=== PATIENT | male | born 1955 | race Caucasian/White ===

== ENCOUNTER 2018-11-20 12:23 | Emergency (ER) | payer OTHER ==
[2018-11-20 12:45] VITALS: BP 114/71
--- NOTE | 2018-11-20 13:04 | UC ---
Abdominal Pain Male HPI - HPI Summary HPI Summary: 62-year-old male presents with complaints of several day history of progressively worsening lower abdominal pain. States he noted the pain started after he ate some nuts. Has had similar episodes in the past however never been this severe nor lasted this long. States pain waxes and wanes in intensity. Worsens with bending and movement. Associated with some mild bloating. States normally has one bowel movement today but over the past 3 days he has had 2-3 small, formed, brown stools. Personal history of IBS but is typically associated with diarrhea. Father has history of recurrent diverticulitis. Denies fever, chills, chest pain, shortness of breath, back or flank pain, nausea, vomiting, diarrhea, blood in stool, melena, dysuria, frequency, urgency, or hematuria. - History of Current Complaint Chief Complaint: UCAbdominalPain Stated Complaint: ABD PAIN Time Seen by Provider: 11/20/18 12:53 Hx Obtained From: Patient Pain Intensity: 6 - Allergies/Home Medications Allergies/Adverse Reactions: Allergies Allergy/AdvReac Type Severity Reaction Status Date / Time No Known Allergies Allergy Verified 11/20/18 12:46 Home Medications: Home Medications NK [No Home Medications Reported] 11/20/18 [History Confirmed 11/20/18] PMH/Surg Hx/FS Hx/Imm Hx Previously Healthy: Yes GI/ History: Other - IBS - Surgical History Surgical History: None - Family History Known Family History: Positive: Other - Diverticulitis - Social History Occupation: Retired Lives: With Family Alcohol Use: None Substance Use Type: None Smoking Status (MU): Never Smoked Tobacco Review of Systems All Other Systems Reviewed And Are Negative: Yes Constitutional: Negative: Fever, Chills Respiratory: Positive: Negative Cardiovascular: Positive: Negative Gastrointestinal: Positive: Abdominal Pain. Negative: Vomiting, Diarrhea, Nausea Genitourinary: Negative: Dysuria, Hematuria, Frequency, Urgency Musculoskeletal: Positive: Negative Neurological: Positive: Negative Is Patient Immunocompromised?: No Physical Exam - Summary Physical Exam Summary: GENERAL APPEARANCE: Well developed, well nourished, alert and cooperative, and appears to be in no acute distress. CARDIAC: Normal S1 and S2. No S3, S4 or murmurs. Rhythm is regular. There is no peripheral edema, cyanosis or pallor. Extremities are warm and well perfused. Capillary refill is less than 2 seconds. Peripheral pulses intact. LUNGS: Clear to auscultation without rales, rhonchi, wheezing or diminished breath sounds. ABDOMEN: Positive bowel sounds. Soft, nondistended. Significant right and left lower quadrant tenderness with guarding. No masses or hepatosplenomegally. No CVA tenderness. MUSKULOSKELETAL: ROM intact to all extremities. No joint erythema or tenderness. Normal muscular development. Normal gait. SKIN: Skin normal color, texture and turgor with no lesions or eruptions. Triage Information Reviewed: Yes Vital Signs: Initial Vital Signs Temp 98.9 F 11/20/18 12:42 Pulse 73 11/20/18 12:42 Resp 18 11/20/18 12:42 BP 114/71 11/20/18 12:42 Pulse Ox 99 11/20/18 12:42 Vital Signs Reviewed: Yes Abd Pain Male Course/Dx - Course Course Of Treatment: 62-year-old male presents with complaints of several day history of progressively worsening lower abdominal pain. States he noted the pain started after he ate some nuts. Has had similar episodes in the past however never been this severe nor lasted this long. States pain waxes and wanes in intensity. Worsens with bending and movement. Associated with some mild bloating. States normally has one bowel movement today but over the past 3 days he has had 2-3 small, formed, brown stools. Personal history of IBS but is typically associated with diarrhea. Father has history of recurrent diverticulitis. Denies fever, chills, chest pain, shortness of breath, back or flank pain, nausea, vomiting, diarrhea, blood in stool, melena, dysuria, frequency, urgency, or hematuria. Afebrile. Vital signs stable. Patient had a soft, nondistended abdomen with tenderness to the right and left lower quadrants with some guarding. Remainder of exam was unremarkable. Based on the patient's history and exam I am recommending that he have further evaluation in the emergency room at this time. Patient is agreeable to this and is electing to transport via private vehicle with his family member driving. - Differential Dx/Clinical Impression Differential Diagnosis/HQI/PQRI: Appendicitis, Constipation, Diverticulitis, Renal Colic, Urinary Tract Infection Provider Diagnosis: Acute bilateral lower abdominal pain Discharge - Sign-Out/Discharge Documenting (check all that apply): Patient Departure All imaging exams completed and their final reports reviewed: No Studies - Discharge Plan Condition: Stable Disposition: HOME-RECOMMEND TO ED Patient Education Materials: Acute Abdominal Pain (ED) Referrals: Leonel Kellogg MD [Primary Care Provider] - Additional Instructions: With your worsening abdominal pain and significant tenderness in the lower abdomen I am recommending that you go to the emergency room for further evaluation. Go directly to the emergency room from here. Do not eat or drink anything until you have been evaluated. - Billing Disposition and Condition Condition: STABLE Disposition: Home-Recommend to ED
== END 2018-11-20 13:11 | disposition home health service (06) ==
LOC: UCEAST 12:23
DX: R10.32 Left lower quadrant pain (principal); R10.31 Right lower quadrant pain; K58.9 Irritable bowel syndrome, unspecified
CPT/HCPCS: 99201; G0463

== ENCOUNTER 2018-11-20 13:32 | Emergency (ER) | payer OTHER ==
[2018-11-20 14:41] LABS: Urine Appearance Clear; Urine Bilirubin Negative (Negative); Urine Blood Negative (Negative); Urine Color Yellow; Urine Glucose Negative (Negative); Urine Ketones Negative (Negative); Urine Nitrite Negative (Negative); Urine Protein Negative (Negative); Urine Specific Gravity 1.023 (1.010-1.030); Urine Urobilinogen Negative (Negative)
[2018-11-20 15:25] LABS: ABS Eosinophils 0.1 10^3/ul (0-0.6); ABS Lymphocytes 1.5 10^3/ul (1.0-4.8); ABS Monocytes 0.9 10^3/ul (0-0.8); ABS Neutrophils 7.5 10^3/ul (1.5-7.7); Eosinophil % 1.2 %; Hematocrit 43 % (42-52); Lymphocyte % 14.7 %; Mean Corpuscular HGB Conc 35 g/dL (31-36); Mean Corpuscular Hemoglobin 33 pg (27-31); Mean Corpuscular Volume 94 fL (80-94); Mean Platelet Volume 8.9 fL (7.4-10.4); Platelet Count 162 10^3/uL (150-450); Red Blood Count 4.62 10^6 /uL (4.18-5.48); Red Cell Distribution Width 13 % (10-15); White Blood Count 10.1 10^3/uL (3.5-10.8)
[2018-11-20 15:48] LABS: Albumin 4.2 g/dL (3.2-5.2); Albumin/Globulin Ratio 1.2 (1-3); C Reactive Protein 86.77 mg/L (<8.01); Calcium 9.8 mg/dL (8.6-10.3); EGFR African American 111.3 (>60); Globulin 3.4 g/dL (2-4); Potassium 4.8 mmol/L (3.5-5.0); Total Bilirubin 0.4 mg/dL (0.2-1.0); Total Protein 7.6 g/dL (6.4-8.9)
[2018-11-20] MEDS ORDERED: Iohexol 300* (CONTRAST) 10 ML SDV IV ONE (16:18)
--- NOTE | 2018-11-20 16:42 | ED ---
Abdominal Pain/Male - HPI Summary HPI Summary: Patient is a 62-year-old male who presents emergency department for lower abdominal pain 4 days. Patient states pain is sharp and crampy in nature. Movement makes symptoms worse. Nothing makes symptoms better. Associated symptoms of increased flatus and decreased stool. Patient states he ate nuts several days ago and feels his symptoms are secondary to nuts. He does note history of irritable bowel syndrome but symptoms for different today. He otherwise denies past medical history. Patient states he's had a colonoscopy in the past which was normal. Patient otherwise denies fever, chills, chest pain, shortness of breath, vomiting, urinary symptoms. Sxs are moderate in severity. - History of Current Complaint Chief Complaint: EDAbdPain Stated Complaint: LOWER ABD PAIN PER PT Time Seen by Provider: 11/20/18 16:04 Hx Obtained From: Patient Pain Intensity: 7 - Allergies/Home Medications Allergies/Adverse Reactions: Allergies Allergy/AdvReac Type Severity Reaction Status Date / Time No Known Allergies Allergy Verified 11/20/18 12:46 PMH/Surg Hx/FS Hx/Imm Hx Previously Healthy: Yes Infectious Disease History: No Infectious Disease History: Denies: Traveled Outside the [place] in Last 30 Days - Family History Known Family History: Positive: Other - Diverticulitis, Non-Contributory - Social History Occupation: Retired Lives: With Family Alcohol Use: None Substance Use Type: Reports: None Smoking Status (MU): Never Smoked Tobacco Review of Systems Constitutional: Negative Negative: Fever, Chills Cardiovascular: Negative Respiratory: Negative Negative: Shortness Of Breath, Cough Positive: Abdominal Pain. Negative: Vomiting, Diarrhea, Nausea Neurological: Negative All Other Systems Reviewed And Are Negative: Yes Physical Exam Triage Information Reviewed: Yes Vital Signs On Initial Exam: Initial Vitals Temp Pulse Resp BP Pulse Ox 98.2 F 65 18 138/84 96 11/20/18 13:35 11/20/18 13:35 11/20/18 13:35 11/20/18 13:35 11/20/18 13:35 Vital Signs Reviewed: Yes Appearance: Positive: Well-Appearing - Pt. sitting up in bed in NAD. present. Skin: Positive: Warm, Dry Head/Face: Positive: Normal Head/Face Inspection Eyes: Positive: Normal, EOMI Neck: Positive: Supple Respiratory/Lung Sounds: Positive: Clear to Auscultation, Breath Sounds Present Cardiovascular: Positive: Normal, RRR Abdomen Description: Positive: Other: - Abd is soft with diffuse tenderness to right, left and suprapubic region of lower abd. with guarding. Musculoskeletal: Positive: Normal, Strength/ROM Intact Neurological: Positive: Normal, CN Intact II-III Psychiatric: Positive: Affect/Mood Appropriate Diagnostics - Vital Signs Vital Signs Temp Pulse Resp BP Pulse Ox 11/20/18 15:27 99.5 F 64 20 130/77 97 11/20/18 13:35 98.2 F 65 18 138/84 96 - Laboratory Lab Results: Lab Results 11/20/18 11/20/18 11/20/18 Range/Units 14:25 15:16 15:16 WBC 10.1 (3.5-10.8) 10^3/uL RBC 4.62 (4.18-5.48) 10^6 /uL Hgb 15.0 (14.0-18.0) g/dL Hct 43 (42-52) % MCV 94 (80-94) fL MCH 33 H (27-31) pg MCHC 35 (31-36) g/dL RDW 13 (10-15) % Plt Count 162 (150-450) 10^3/uL MPV 8.9 (7.4-10.4) fL Neut % (Auto) 74.5 % Lymph % (Auto) 14.7 % [place] % (Auto) 9.2 % Eos % (Auto) 1.2 % Baso % (Auto) 0.4 % Absolute Neuts (auto) 7.5 (1.5-7.7) 10^3/ul Absolute Lymphs (auto) 1.5 (1.0-4.8) 10^3/ul Absolute Monos (auto) 0.9 H (0-0.8) 10^3/ul Absolute Eos (auto) 0.1 (0-0.6) 10^3/ul Absolute Basos (auto) 0.0 (0-0.2) 10^3/ul Absolute Nucleated RBC 0.0 10^3/ul Nucleated RBC % 0.0 Sodium 138 (135-145) mmol/L Potassium 4.8 (3.5-5.0) mmol/L Chloride 105 (101-111) mmol/L Carbon Dioxide 27 (22-32) mmol/L Anion Gap 6 (2-11) mmol/L BUN 21 (6-24) mg/dL Creatinine 0.84 (0.67-1.17) mg/dL Est GFR ( Amer) 111.3 (>60) Est GFR (Non-Af Amer) 92.0 (>60) BUN/Creatinine Ratio 25.0 H (8-20) Glucose 102 H (70-100) mg/dL Lactic Acid (0.5-2.0) mmol/L Calcium 9.8 (8.6-10.3) mg/dL Total Bilirubin 0.40 (0.2-1.0) mg/dL AST 18 (13-39) U/L ALT 22 (7-52) U/L Alkaline Phosphatase 94 (34-104) U/L Troponin I 0.00 (<0.04) ng/mL C-Reactive Protein 86.77 H (<8.01) mg/L Total Protein 7.6 (6.4-8.9) g/dL Albumin 4.2 (3.2-5.2) g/dL Globulin 3.4 (2-4) g/dL Albumin/Globulin Ratio 1.2 (1-3) Lipase 18 (11.0-82.0) U/L Urine Color Yellow Urine Appearance Clear Urine pH 5.0 (5-9) Ur Specific [place] 1.023 (1.010-1.030) Urine Protein Negative (Negative) Urine Ketones Negative (Negative) Urine Blood Negative (Negative) Urine Nitrate Negative (Negative) Urine Bilirubin Negative (Negative) Urine Urobilinogen Negative (Negative) Ur Leukocyte Esterase Negative (Negative) Urine Glucose Negative (Negative) 11/20/18 Range/Units 15:16 WBC (3.5-10.8) 10^3/uL RBC (4.18-5.48) 10^6 /uL Hgb (14.0-18.0) g/dL Hct (42-52) % MCV (80-94) fL MCH (27-31) pg MCHC (31-36) g/dL RDW (10-15) % Plt Count (150-450) 10^3/uL MPV (7.4-10.4) fL Neut % (Auto) % Lymph % (Auto) % [place] % (Auto) % Eos % (Auto) % Baso % (Auto) % Absolute Neuts (auto) (1.5-7.7) 10^3/ul Absolute Lymphs (auto) (1.0-4.8) 10^3/ul Absolute Monos (auto) (0-0.8) 10^3/ul Absolute Eos (auto) (0-0.6) 10^3/ul Absolute Basos (auto) (0-0.2) 10^3/ul Absolute Nucleated RBC 10^3/ul Nucleated RBC % Sodium (135-145) mmol/L Potassium (3.5-5.0) mmol/L Chloride (101-111) mmol/L Carbon Dioxide (22-32) mmol/L Anion Gap (2-11) mmol/L BUN (6-24) mg/dL Creatinine (0.67-1.17) mg/dL Est GFR ( Amer) (>60) Est GFR (Non-Af Amer) (>60) BUN/Creatinine Ratio (8-20) Glucose (70-100) mg/dL Lactic Acid 0.5 (0.5-2.0) mmol/L Calcium (8.6-10.3) mg/dL Total Bilirubin (0.2-1.0) mg/dL AST (13-39) U/L ALT (7-52) U/L Alkaline Phosphatase (34-104) U/L Troponin I (<0.04) ng/mL C-Reactive Protein (<8.01) mg/L Total Protein (6.4-8.9) g/dL Albumin (3.2-5.2) g/dL Globulin (2-4) g/dL Albumin/Globulin Ratio (1-3) Lipase (11.0-82.0) U/L Urine Color Urine Appearance Urine pH (5-9) Ur Specific [place] (1.010-1.030) Urine Protein (Negative) Urine Ketones (Negative) Urine Blood (Negative) Urine Nitrate (Negative) Urine Bilirubin (Negative) Urine Urobilinogen (Negative) Ur Leukocyte Esterase (Negative) Urine Glucose (Negative) Result Diagrams: 11/20/18 15:16 11/20/18 15:16 Lab Statement: Any lab studies that have been ordered have been reviewed, and results considered in the medical decision making process. Abdominal Pain Male Course/Dx - Course Course Of Treatment: Patient presenting with ongoing lower abdominal pain. Labs unremarkable other than elevated crp. CT per radiology: Diverticulitis of the sigmoid colon without evidence of peridiverticular. abscess. 1.8 cm hypervascular lesion in the inferior anterior right lobe of liver consistent with a. hemangioma. Results discussed. Discussed liver hemangioma. Pt. tolerating PO. Will tx with cipro and flagyl. Tylenol for pain as directed. clear liquid diet. Discussed foods to avoid. Will f.u with PCP for recheck and further eval of liver mass. Will return to ed for increased pain, fever, vomiting or if concerned. Pt. understands and agrees with plan. - Diagnoses Provider Diagnoses: Liver hemangioma, Diverticulitis Discharge - Sign-Out/Discharge Documenting (check all that apply): Patient Departure Patient Received Moderate/Deep Sedation with Procedure: No - Discharge Plan Condition: Good Disposition: HOME Prescriptions: Ciprofloxacin TAB* [Cipro 500 MG TAB*] 500 mg PO BID #20 tab metroNIDAZOLE [Flagyl 500 MG TAB] 500 mg PO TID #30 tab Patient Education Materials: Diverticulitis (ED), Diverticulitis Diet (ED) Referrals: [facility] [Outside] Additional Instructions: Follow up with your PCP within one week Take antibiotics as directed Tylenol for pain as directed Clear liquid diet x 3-5 days Return to ER for increased pain, fever, or if concerned - Billing Disposition and Condition Condition: GOOD Disposition: Home
[2018-11-20] MEDS ORDERED: Ciprofloxacin TAB* 250 MG PO ONE (17:16)
[2018-11-20] MEDS ORDERED: metroNIDAZOLE TAB* 250 MG PO ONE (17:16)
[2018-11-20 18:19] VITALS: BP 128/76
== END 2018-11-20 18:12 | disposition home or self-care (01) ==
LOC: ED 13:32
DX: K57.92 Diverticulitis of intestine, part unspecified, without perforation or abscess without bleeding (principal); D18.09 Hemangioma of other sites
CPT/HCPCS: 36415; 74177; 80053; 81003; 83605; 83690; 84484; 85025; 86140; 99282; A9270-GY; Q9967